=== PATIENT | female | born 1970 | race Caucasian/White ===

== ENCOUNTER 2021-12-27 07:34 | Outpatient (CLI) | payer OTHER, SELFPAY ==
--- NOTE | ~2021-12-27 | XR_ITS ---
EXAMINATION: XR hip BI 2V w AP pelvis DATE: 12/27/2021 09:02 INDICATION: Bilateral hip pain TECHNIQUE: AP view the pelvis and two views of each hip were obtained. COMPARISON: None. FINDINGS: Bone alignment is normal. There is no fracture. There is mild osteoarthritis of the hips. S evere facet osteoarthritis is noted in the lower lumbar spine. IMPRESSION: 1. Mild osteoarthritis of the hips without acute osseous abnormality. Reviewed, dictated and finalized at location B. DESIGNER
--- NOTE | ~2021-12-27 | DEXA_ITS ---
Bone Density Report Name: LYNETTE CAICEDO Age: 51 Sex: Female Ethnicity: White Date of : 1970 Indication: postmenopausal; screening for osteoporosis; height loss; prior fracture; Referring Provider: Dennis Cantu Study: Bone densitometry was performed. Exam Date: December 27, 2021 Accession number: [id number] Bone Density: Region BMD T-score Z-score Classification AP Spine(L1, L2) 1.321 3.1 3.8 Normal Femoral Neck (Left) 0.839 -0.1 0.7 Normal Total Hip (Left) 0.963 0.2 0.6 Normal Femoral Neck (Right) 0.794 -0.5 0.2 Normal Total Hip (Right) 0.944 0.0 0.5 Normal Femoral Neck Mean 0.817 -0.3 0.4 Normal Total Hip Mean 0.953 0.1 0.6 Normal World Health Organization criteria for BMD impression classify patients as: Normal (T-score at or above -1.0), Osteopenia (T-score between -1.0 and -2.5), or Osteoporosis (T-score at or below -2.5). 10-year Fracture Risk: FRAX not reported because: All T-scores for Spine Total, Hip Total, Femoral Neck at or above -1.0 Clinical Information Provided by Patient: Has had a low trauma fracture Smokes Patient maximum height was 67 Menopause Age: 51 No regular weight bearing exercise Does not regularly consume dairy products Drinks caffeinated beverages Onset of menses at age 9 Number of children 0 Impression: The patient has normal bone mass. The patient has risk factors, including: smoking, previous fracture. Discussion: BONE DENSITY IS ABOVE THE MINIMUM DESIRABLE LEVEL AT ALL SKELETAL SITES TESTED. This patient?s bone mineral density is above the minimum desirable level (T-score -1.0 or better) at all sites measured. The patient should follow a healthful lifestyle (good nutrition with adequate calcium and vitamin D, and appropriate weight-bearing exercise). Follow-Up: Consider repeating this study in 5 years or sooner if there is some new clinical indication. Reported by: Dr. Shaun Mohan on 12/27/2021 10:59:00 AM. Reviewed, dictated and finalized at location A. [facility]
--- NOTE | ~2021-12-27 | MM_ITS ---
EXAMINATION: MM screening carolyn BI w kevin HISTORY: Screening mammogram TECHNIQUE: Craniocaudal and mediolateral oblique 3-D tomosynthesis images were obtained and synthetic 2-D images were generated. CAD analysis was submitted and interpreted. COMPARISON: No prior mammogram is available for comparison at this institution. BREAST PARENCHYMAL COMPOSITION: The breasts are almost entirely fatty. FINDINGS: There is no evidence of suspicious mass, calcification, or architectural distortion to sugg est malignancy in either breast. There has been no suspicious interval change. IMPRESSION: 1. No mammographic evidence of malignancy. 2. Recommend routine screening mammography in one year. BI-RADS Category 1: Negative Reviewed, dictated and finalized at location A. ODOLOGIST
--- NOTE | ~2021-12-27 | XR_ITS ---
EXAMINATION: XR lumbar spine 2-3V DATE: 12/27/2021 09:01 INDICATION: Back pain TECHNIQUE: Anteroposterior and lateral views of the lumbar spine, and cone-down lateral view of the l umbosacral junction were obtained. COMPARISON: None. FINDINGS: No fracture is identified. There are 2 mm of retrolisthesis of L5 on S1. There is mild loss of intervertebral disc space height at L5-S1. The lumbar vertebral body heights are maintained. Ther e is minimal anterior wedging in the lower thoracic spine with associated severe spondylosis. Degener ative osteophytes project from the anterior endplates of multiple vertebral bodies. There is advanced facet osteoarthritis of the mid and lower lumbar spine. IMPRESSION: 1. Severe facet osteoarthritis of the mid and lower lumbar spine, otherwise mild lumbar spondylosis. Severe lower thoracic spondylosis. Reviewed, dictated and finalized at location B. CAL BILLING SUPERVISOR IMPRESSION: 1. Severe facet osteoarthritis of the mid and lower lumbar spine, otherwise mil d lumbar spondylosis. Severe lower thoracic spondylosis.
[2021-12-27 07:52] LABS: Appearance Urine Clear (Clear); Basophils Absolute Auto 0.04 K/mm3 (0.00-0.10); Basophils Percent Auto 0.6 % (0.0-1.0); Bilirubin Urine Negative (Negative); Blood Urine Negative (Negative); Eosinophils Absolute Auto 0.09 K/mm3 (0.02-0.50); Eosinophils Percent Auto 1.4 % (1.0-6.0); Glucose Urine UA Negative (Negative); Hematocrit 43.6 % (35.0-49.0); Immature Granulocyte Absolute 0.02 K/mm3 (0.00-0.00); Immature Granulocyte Percent A 0.3 % (0.0-0.0); Ketones Urine Negative (Negative); Leukocyte Esterase Ur Negative (Negative); Lymphocytes Absolute Auto 1.38 K/mm3 (1.10-4.50); Lymphocytes Percent Auto 21.8 % (18.0-42.0); Mean Corpuscular HGB Conc 32.1 g/dL (32.0-36.0); Mean Corpuscular Hemoglobin 28.3 pg (27.0-31.0); Mean Corpuscular Volume 88.1 fL (78.0-102.0); Mean Platelet Volume 10.4 fl (9.2-11.8); Monocytes Absolute Auto 0.38 K/mm3 (0.10-0.90); Neutrophils Absolute Auto 4.4 K/mm3 (1.7-7.2); Neutrophils Percent Auto 69.9 % (50.0-70.0); Nitrate Urine Negative (Negative); Platelet Count Result 245 K/mm3 (150-420); Protein Urine Negative (Negative); Red Blood Count 4.95 M/mm3 (4.20-5.40); Red Cell Distribution Width 12.8 % (11.6-14.4); Urobilinogen Urine 0.2 mg/dL (0.2-1.0); White Blood Count 6.3 K/mm3 (4.8-10.8)
[2021-12-27 08:30] LABS: Add Urine Microscopic? NO; Color Urine Light Yellow (Yellow)
[2021-12-27 08:40] LABS: Alanine Aminotransferase 23 U/L (14-59); Albumin Level 3.3 g/dL (3.4-5.0); Alkaline Phosphatase 129 U/L (46-116); Anion Gap 5 mmol/L (8-16); Aspartate Amino Transferase 17 U/L (15-37); Bilirubin,Total 0.5 mg/dL (0.00-1.00); Blood Urea Nitrogen 10 mg/dL (7-18); Carbon Dioxide 29 mmol/L (21-32); Chloride 104 mmol/L (98-108); Cholesterol 188 mg/dL (0-200); Estimated Glomerular Filt Rate > 60; Glucose 117 mg/dL (70-99); HDL Direct 36 mg/dL (40-60); LDL Cholesterol Calculated 124 mg/dL (<130); Osmolality Calculated 286 mOsm/kg (285-295); Potassium 4.4 mmol/L (3.5-5.1); Sodium 138 mmol/L (136-145); Thyroid Stimulating Hormone 4.51 uIU/mL (0.36-3.74); Total Protein 7.9 g/dL (6.4-8.2); Triglycerides 140 mg/dL (0-150); Uric Acid 8.7 mg/dL (2.6-6.0)
[2021-12-27 12:29] LABS: Free T3 3.06 pg/mL (2.18-3.98); Free T4 Free Thyroxine 0.99 ng/dL (0.76-1.46)
== END 2021-12-27 07:35 | disposition home or self-care (01) ==
LOC: CHSIMG 07:37
PROVIDERS: PCP Internal Medicine; Visit Provider Internal Medicine
DX: Z00.00 Encounter for general adult medical examination without abnormal findings (principal); M10.9 Gout, unspecified; R26.9 Unspecified abnormalities of gait and mobility; Z12.31 Encounter for screening mammogram for malignant neoplasm of breast; R73.09 Other abnormal glucose; R53.83 Other fatigue
CPT/HCPCS: 36415; 72100; 73521; 77063; 77067; 77080; 80053; 80061; 81003; 83036; 84439; 84443; 84481; 84550; 85025

== ENCOUNTER 2022-01-17 07:48 | Outpatient (RCR) | payer OTHER, SELFPAY ==
--- NOTE | 2022-01-17 08:17 | PTOPEVAL1 ---
Assessment and note entered by Ivana Haddad DPT Evaluation Information Assessment Status Evaluation Diagnosis Gait disorder, lumbar region pain Onset 01/10/2022 Subjective Information Pt reports that she has been having low back pain for awhile. She reports occasional heat sensation in the back especially after sitting for a long period of time, and she always figured this was from her posture. She reports that walking and standing is not problem. She reports that back pain is not severe at all. She notes that her balance has been worse since she had foot surgery in 2018. 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 She reports a lot of tripping and falling when she was a kid. She ended up tripping in 2018 and then they performed surgery to structurally repair the R foot. Although the R foot was repaired, the L foot is worse now. She reports a lot of difficulty walking on uneven surfaces and going down stairs and notes she is more cautious when it is dark. She reports no falls since her fall in 2018. She does not walk with an AD. She wants to be able to walk again without such a visual balance impairment, as she feels she walks like a penguin . Reported Pain Level Pain Score 3: Self Report Assessment PT Clinical Summary Pt presents to PT with complaints of an altered gait pattern and occasional low back pain and demonstrates decreased hip abductor strength, trendelenburg gait bilaterally, and altered gait/ posture of the bilateral LEs. These deficits make it more challenging for her to walk and sit as needed for walking her dog along the sidewalk and for her job. She was provided with an HEP focused on improving LE strength, especially of the bilateral hips. She will benefit from skilled PT to improve the aforementioned impairments, facilitate symptom relief, decrease risk for falls , and return all functional and recreational activities. Plan of Care Interventions Electrical Stimulation,Gait Training,Hot Pack/Cold Pack,Manual Therapy,Neuro Re-education,Patient/ Caregiver Educati,Therapeutic Activities, Therapeutic Exercise PT Services Indicated Yes Treatment Frequency and 2x week for 8 visits Duration
--- NOTE | 2022-02-22 17:59 | PTOPPROG ---
Assessment and note entered by Ivana Haddad DPT Evaluation Information Assessment Status Progress Diagnosis Gait disorder, lumbar region pain Onset 01/10/2022 Subjective Information Pt reports that she is not having any pain in her hip or back. She reports some mild tenderness in her R knee because she twisted her knee. They did an Xray and found arthritis in her knee. She is surprised with how well her back and hip are, and her knee is doing much better after using her medicine. She even has continued to all of her activities at home, including walking her dog. She reports her recent visit with Dr. Cantu on 02/15 went well. Assessment PT Clinical Summary Pt presents to PT with significant improvements in pain, strength, mobility, and balance since her initial evaluation. She continues to walk with a bilateral trendelenburg gait pattern. Although her lateral hip/glute strength has improved, there is still room for improvement in an effort to improve her trendelenburg gait, however, pt has a potential for a leg length discrepency. She reports improvements in quality of life since starting PT but hopes to improve her trendelenburg gait. She is likely to benefit from additional skilled PT to further improve gait pattern and strength and return to full functional and recreational activity participation. Plan of Care PT Services Indicated Yes Treatment Frequency and 1x week for 5 visits Duration These treatments will address the objective and functional deficits as defined above. The patient will be advanced safely and appropriately in order for the patient to progress towards his/her prior level of function. Additional exercises will be introduced and as well as a comprehensive home exercise program upon discharge, if needed, ?to ensure carryover of functional gains achieved in the clinic. This treatment plan has been reviewed and agreement upon by the patient.
== END 2022-03-28 18:00 | disposition home or self-care (01) ==
LOC: CHSPT 07:48
PROVIDERS: PCP Internal Medicine; Visit Provider Internal Medicine
DX: R26.9 Unspecified abnormalities of gait and mobility (principal); M47.817 Spondylosis without myelopathy or radiculopathy, lumbosacral region; M16.9 Osteoarthritis of hip, unspecified
CPT/HCPCS: 97110; 97112; 97161; 97530

== ENCOUNTER 2022-01-25 14:15 | Outpatient (RCR) | payer OTHER, SELFPAY ==
[2022-01-25 14:14] VITALS: BMI 41.9
== END 2022-04-13 07:44 | disposition home or self-care (01) ==
LOC: ANHDMC 14:15
PROVIDERS: PCP Internal Medicine; Visit Provider Internal Medicine
DX: R73.03 Prediabetes (principal); Z71.3 Dietary counseling and surveillance
CPT/HCPCS: 97802

== ENCOUNTER 2022-02-15 12:12 | Outpatient (CLI) | payer OTHER, SELFPAY ==
--- NOTE | ~2022-02-15 | XR_ITS ---
Right Knee Technique: AP, lateral, and oblique views were obtained. Clinical History: Pain Findings: No fracture or dislocation is seen. Osseous alignment is anatomic. There is mild degenerati ve change at the lateral joint line. There is moderate degenerative change of the patellofemoral comp artment. Soft tissues are unremarkable. No joint effusion is seen. Impression: Degenerative changes of the lateral and patellofemoral compartments, as detailed above. Reviewed, dictated and finalized at location M. NG BENDER Impression: Degenerative changes of the lateral and patellofemoral compartments, as detaile d above.
== END 2022-02-15 12:13 | disposition home or self-care (01) ==
LOC: CHSIMG 12:14
PROVIDERS: PCP Internal Medicine; Visit Provider Internal Medicine
DX: M25.561 Pain in right knee (principal)
CPT/HCPCS: 73564

== ENCOUNTER 2022-05-28 07:59 | Outpatient (CLI) | payer OTHER, SELFPAY ==
--- NOTE | ~2022-05-28 | XR_ITS ---
XR wrist LT min 3V DATE: 05/28/2022 08:28 INDICATION: Diffuse wrist pain, occasional tingling, numbness TECHNIQUE: 4 views COMPARISON: None FINDINGS: There is narrowing at the joint between the lunate and capitate bones. There is mild osteoa rthritis at the first carpometacarpal joint. No fracture, dislocation, periosteal reaction or bone destruction or erosive change is noted. IMPRESSION: Mild osteoarthritis Reviewed, dictated and finalized at location A. IMPRESSION: Mild osteoarthritis
--- NOTE | ~2022-05-28 | XR_ITS ---
XR hand LT min 3V DATE: 05/28/2022 08:26 INDICATION: Palmar hand and wrist pain TECHNIQUE: 3 views COMPARISON: None FINDINGS: There is severe narrowing at the articulation between the lunate and capitate bones. There is osteophytic change at the triscaphe and first carpometacarpal joint. Mild osteoarthritis at the fi rst metacarpophalangeal and interphalangeal joints. No erosive changes are noted. No chondrocalcinosi s. No fracture, dislocation, periosteal reaction or bone destruction. IMPRESSION: Polyarticular osteoarthritis, most prominent at the lunate capitate joint Reviewed, dictated and finalized at location A.
[2022-05-28 08:17] LABS: Basophils Absolute Auto 0.02 K/mm3 (0.00-0.10); Basophils Percent Auto 0.3 % (0.0-1.0); Eosinophils Absolute Auto 0.06 K/mm3 (0.02-0.50); Eosinophils Percent Auto 0.9 % (1.0-6.0); Hematocrit 43.8 % (35.0-49.0); Hemoglobin 14.4 g/dL (12.0-15.0); Immature Granulocyte Absolute 0.02 K/mm3 (0.00-0.00); Immature Granulocyte Percent A 0.3 % (0.0-0.0); Lymphocytes Absolute Auto 0.95 K/mm3 (1.10-4.50); Lymphocytes Percent Auto 14.4 % (18.0-42.0); Mean Corpuscular HGB Conc 32.9 g/dL (32.0-36.0); Mean Corpuscular Hemoglobin 30.3 pg (27.0-31.0); Mean Corpuscular Volume 92.2 fL (78.0-102.0); Mean Platelet Volume 10.9 fl (9.2-11.8); Monocytes Percent Auto 6.1 % (2.0-11.0); Neutrophils Absolute Auto 5.1 K/mm3 (1.7-7.2); Platelet Count Result 239 K/mm3 (150-420); Red Blood Count 4.75 M/mm3 (4.20-5.40); Red Cell Distribution Width 14.2 % (11.6-14.4); White Blood Count 6.6 K/mm3 (4.8-10.8)
[2022-05-28 08:45] LABS: Hemoglobin A1C 5.6 % (<5.7)
[2022-05-28 08:51] LABS: Alanine Aminotransferase 18 U/L (14-59); Albumin Level 3.9 g/dL (3.4-5.0); Alkaline Phosphatase 107 U/L (46-116); Anion Gap 10 mmol/L (8-16); Aspartate Amino Transferase 17 U/L (15-37); Bilirubin,Total 0.5 mg/dL (0.00-1.00); Blood Urea Nitrogen 11 mg/dL (7-18); CRP 1.7 mg/dL (0.0-0.9); Calcium 9.5 mg/dL (8.5-10.1); Carbon Dioxide 30 mmol/L (21-32); Chloride 104 mmol/L (98-108); Cholesterol 109 mg/dL (0-200); Estimated Glomerular Filt Rate > 60; Glucose 97 mg/dL (70-99); HDL Direct 34 mg/dL (40-60); LDL Cholesterol Calculated 53 mg/dL (<130); Osmolality Calculated 297 mOsm/kg (285-295); Potassium 4.4 mmol/L (3.5-5.1); Sodium 144 mmol/L (136-145); Thyroid Stimulating Hormone 3.71 uIU/mL (0.36-3.74); Triglycerides 110 mg/dL (0-150); Uric Acid 4.4 mg/dL (2.6-6.0)
[2022-06-01 20:57] LABS: Anti Cyclic Citrullinated Pept <16 Units (<20)
== END 2022-05-28 08:00 | disposition home or self-care (01) ==
PROVIDERS: PCP Internal Medicine; Visit Provider Internal Medicine
DX: R73.03 Prediabetes (principal); E78.5 Hyperlipidemia, unspecified; R63.4 Abnormal weight loss; M25.532 Pain in left wrist; M19.032 Primary osteoarthritis, left wrist; M19.042 Primary osteoarthritis, left hand
CPT/HCPCS: 36415; 73110; 73130; 80053; 80061; 83036; 84443; 84550; 85025; 86038; 86140; 86200

== ENCOUNTER 2022-09-24 19:35 | Emergency (ER) | payer OTHER, SELFPAY ==
--- NOTE | ~2022-09-24 | CT_ITS ---
EXAMINATION: CT abdomen pelvis w con DATE: 09/24/2022 21:39 INDICATION: Abdominal pain TECHNIQUE: Computed tomography (CT) of the abdomen and pelvis was performed with 100 mL Omnipaque-350 intravenous contrast. Automated exposure control and iterative reconstruction technique were employe d. The dose-length product was 916.41 mGy-cm. COMPARISON: None FINDINGS: Lung bases are clear. Heart size is normal. No pericardial or pleural effusion. Mild hepatosplenomega ly with right hepatic lobe measuring 21.3 cm craniocaudal length and the spleen measuring 13.7 cm in maximal length. There is nonspecific mild periportal edema. Gallbladder, pancreas, bilateral adrenal glands and kidneys are normal. There is a large right femoral hernia which contains a minimal amount of likely reactive edema as well as a short loop of small bowel which is fluid-filled and with less m ucosal enhancement than the remainder of the small bowel which is concerning for incarceration. No di lation of the more proximal small bowel. There is mild scattered colonic diverticulosis without adjac ent from trace stranding to suggest diverticulitis. Normal appendix. Additional moderate sized fat-co ntaining umbilical hernia. Bladder, uterus and bilateral adnexa are unremarkable. Aside from the prev ious noted minimal amount of fluid in the right femoral hernia there is no other free intraperitoneal gas or fluid. No pathologically enlarged abdominal or pelvic lymphadenopathy. Moderate to severe tho racolumbar spondylosis. IMPRESSION: 1. Short segment of small bowel within a right femoral hernia with relatively decreased mucosal enhan cement concerning for incarceration. 2. Nonspecific mild hepatosplenomegaly. 3. Moderate-sized fat-containing umbilical hernia. Reviewed, dictated and finalized at location A. IMPRESSION: 1. Short segment of small bowel within a right femoral hernia with relatively d ecreased mucosal enhancement concerning for incarceration. 2. Nonspecific mild hepatosplenomegaly. 3. Moderate-sized fat-containing umbilical hernia.
--- NOTE | 2022-09-24 19:40 | ED.NAVMDI ---
HPI - Nausea/Vomiting/Diarrhea General Chief complaint: Nausea/Vomiting/Diarrhea Stated complaint: Nausea; vomiting Time Seen by Provider: 09/24/22 19:40 Source: patient Mode of arrival: ambulatory Limitations: no limitations History of Present Illness HPI Narrative: 51-year-old female with a history of DM, IBS, diverticulosis, colitis, arthritis, chronic low back pain, gout presents to the ER with a 3 hour history of -- nausea with multiple episodes of vomiting. The vomitus is watery. -- lower abdominal pain no fever or chills the patient has not eaten anything out of the ordinary over the past 2-3 days. No other family members have similar symptoms MD elicited complaint: nausea, vomiting and abdominal pain Pertinent past history: anorexia Onset (ago): hour(s) ( Symptoms started 3 hours ago) Description of vomiting: watery Associated nausea: Yes Associated abdominal pain: Yes Location of pain: other ( lower abdominal pain) Radiation: does not radiate Pain consistency: constant Severity: mild Pain scale (0-10): 7 Quality: cramping Exacerbating factors: none Relieving factors: none Associated symptoms: loss of appetite, nausea/vomiting and weakness Related Data Home Medications Medication Instructions Recorded Confirmed allopurinol 100 mg tablet mg 09/24/22 cholestyramine (with sugar) 4 gram ea 09/24/22 powder for susp in a packet cyclosporine 0.05 % eye drops in a drp 09/24/22 dropperette (Restasis) rosuvastatin 5 mg tablet mg 09/24/22 semaglutide 14 mg tablet (Rybelsus) mg PO 09/24/22 Allergies Allergy/AdvReac Type Severity Reaction Status Date / Time No Known Allergies Allergy Verified 09/24/22 19:50 Review of Systems Review of Systems: All systems reviewed & are unremarkable except as noted in HPI and below Constitutional: Constitutional: Reports as per HPI and Reports no additional constitutional complaints Eyes: Eyes: Reports as per HPI and Reports no additional eye complaints ENT: Reports system reviewed and no additional complaints, except as documented and Reports as per HPI Cardiovascular: Cardiovascular: Reports as per HPI and Reports no additional cardiovascular complaints Respiratory: Respiratory: Reports as per HPI and Reports no additional respiratory complaints Gastrointestinal: Gastrointestinal: Reports as per HPI, Reports no additional gastrointestinal complaints, Reports abdominal pain, Reports nausea and Reports vomiting Genitourinary: Genitourinary: Reports no additional female genitourinary complaints and Reports as per HPI Musculoskeletal: Musculoskeletal: Reports no additional musculoskeletal complaints, Reports as per HPI, Reports back pain and Reports arthralgias Integumentary/Breasts: Skin/Breast: Reports system reviewed and no additional complaints, except as docu and Reports as per HPI Neurologic: Reports system reviewed and no additional complaints, except as documented and Reports as per HPI Psychiatric: Psychiatric: Reports no additional psychiatric complaints and Reports as per HPI Endocrine: Endocrine: Reports no additional endocrine complaints and Reports as per HPI Hematologic/Lymphatic: Hematologic/Lymphatic: Reports no additional hematologic/lymphatic complaints and Reports as per HPI Allergic/Immunologic: Allergic/Immunologic: Reports no additional allergic/immunologic complaints and Reports as per HPI [facility] Past Medical History Medical History (Updated 09/25/22 @ 01:39 by Rubio Ho MD) Colitis Diverticulosis Irritable bowel syndrome Social History Social History Spiritual care concerns: No Exam Const: General: no acute distress Orientation/consciousness: patient oriented x3 Limitations: no limitations HENMT: Head: normal to inspection Ears: external ears normal Face/Nose/Sinus: Normal external nose present Face and sinus: normal facial exam Mouth: Yes Normal oral and palatal mucosa present Throat: posterior orophar
[2022-09-24 19:42] VITALS: BP 137/69; PULSE 76; RESP 16; TEMP 36.9; O2SAT 99
[2022-09-24] MEDS: PROCHLORPERAZINE EDISYLATE 10 MG/2 ML VIAL IV PUSH (20:12)
[2022-09-24] MEDS: LACTATED RINGERS 1,000 ML 999 ML IV CONT (20:13)
[2022-09-24 20:39] LABS: Basophils Absolute Auto 0.05 K/mm3 (0.00-0.10); Basophils Percent Auto 0.4 % (0.0-1.0); Eosinophils Absolute Auto 0.02 K/mm3 (0.02-0.50); Eosinophils Percent Auto 0.2 % (1.0-6.0); Hematocrit 44.3 % (35.0-49.0); Hemoglobin 14.8 g/dL (12.0-15.0); Immature Granulocyte Percent A 0.8 % (0.0-0.0); Lymphocytes Absolute Auto 0.95 K/mm3 (1.10-4.50); Lymphocytes Percent Auto 7.7 % (18.0-42.0); Mean Corpuscular HGB Conc 33.4 g/dL (32.0-36.0); Mean Corpuscular Hemoglobin 32.2 pg (27.0-31.0); Mean Corpuscular Volume 96.3 fL (78.0-102.0); Mean Platelet Volume 11.1 fl (9.2-11.8); Monocytes Absolute Auto 0.28 K/mm3 (0.10-0.90); Monocytes Percent Auto 2.3 % (2.0-11.0); Neutrophils Percent Auto 88.6 % (50.0-70.0); Platelet Count Result 216 K/mm3 (150-420); White Blood Count 12.4 K/mm3 (4.8-10.8)
[2022-09-24 20:56] LABS: Prothrombin Time 11.1 Seconds (9.50-12.10)
[2022-09-24 21:01] LABS: Alanine Aminotransferase 16 U/L (14-59); Albumin Level 3.6 g/dL (3.4-5.0); Alkaline Phosphatase 99 U/L (46-116); Anion Gap 11 mmol/L (8-16); Aspartate Amino Transferase 14 U/L (15-37); Bilirubin,Total 0.4 mg/dL (0.00-1.00); Blood Urea Nitrogen 13 mg/dL (7-18); Calcium 9.4 mg/dL (8.5-10.1); Carbon Dioxide 26 mmol/L (21-32); Chloride 103 mmol/L (98-108); Estimated CRCL calculation 94 ml/min; Estimated Glomerular Filt Rate > 60; Glucose 175 mg/dL (70-99); Lipase 20 U/L (16-77); Osmolality Calculated 294 mOsm/kg (285-295); Potassium 4.1 mmol/L (3.5-5.1); Sodium 140 mmol/L (136-145); Total Protein 7.8 g/dL (6.4-8.2)
[2022-09-24 21:04] LABS: Lactic Acid Reflex 2.9 mmol/L (0.4-2.0)
[2022-09-24] MEDS: ONDANSETRON INJ 4 MG/2 ML VIAL IV PUSH (21:24)
[2022-09-24 21:27] LABS: Appearance Urine Clear (Clear); Bilirubin Urine Negative (Negative); Blood Urine Trace-Intact (Negative); Color Urine Light Yellow (Yellow); Glucose Urine UA Negative (Negative); Ketones Urine Negative (Negative); Leukocyte Esterase Ur 1+ LEU/UL (Negative); Nitrate Urine Negative (Negative); Protein Urine Negative (Negative); Urobilinogen Urine 0.2 mg/dL (0.2-1.0)
[2022-09-24 21:35] LABS: Add Urine Microscopic? YES; Amorphous Sediment Urine Few; Bacteria Urine 1+ /hpf; RBC Urine 0-2 /hpf (0-2); Squamous Epithelial Cell Urine Few /hpf (Few); WBC Clumps Urine Present /hpf
[2022-09-24 21:36] LABS: Mucus Urine Few /lpf
[2022-09-24 23:36] LABS: Reflex Lactic Acid Yes or No Add Lactic
[2022-09-25 00:28] LABS: Lactic Acid 1.9 mmol/L (0.4-2.0)
[2022-09-25 01:35] VITALS: BP 124/74; PULSE 72; RESP 18; O2SAT 96
[2022-09-25 02:31] VITALS: BP 124/74; PULSE 73; RESP 16; TEMP 36.4; O2SAT 100
--- NOTE | 2022-09-27 12:19 | PC.NURSE ---
FINAL URINE CULTURE RESULTS: MIXED GENITAL GURMEET ISOLATED. NO FURTHER ACTION AT THIS TIME.
== END 2022-09-25 02:34 | disposition short-term general hospital (02) ==
PROVIDERS: Emergency Provider Internal Medicine Critical Care Medicine; PCP Internal Medicine
DX: K40.90 Unilateral inguinal hernia, without obstruction or gangrene, not specified as recurrent (principal); R73.9 Hyperglycemia, unspecified; R10.31 Right lower quadrant pain
CPT/HCPCS: 36415; 74177; 80053; 81001; 83605; 83690; 84484; 85025; 85610; 87086; 87088; 96361; 96374; 96375; 99284; J0780; J2405; J7120; Q9967

== ENCOUNTER 2022-10-08 09:13 | Outpatient (CLI) | payer OTHER, SELFPAY ==
[2022-10-08 10:01] LABS: Basophils Absolute Auto 0.05 K/mm3 (0.00-0.10); Basophils Percent Auto 0.7 % (0.0-1.0); Eosinophils Absolute Auto 0.12 K/mm3 (0.02-0.50); Eosinophils Percent Auto 1.7 % (1.0-6.0); Hematocrit 41.6 % (35.0-49.0); Hemoglobin 13.6 g/dL (12.0-15.0); Immature Granulocyte Absolute 0.02 K/mm3 (0.00-0.00); Immature Granulocyte Percent A 0.3 % (0.0-0.0); Lymphocytes Absolute Auto 1.26 K/mm3 (1.10-4.50); Lymphocytes Percent Auto 17.7 % (18.0-42.0); Mean Corpuscular HGB Conc 32.7 g/dL (32.0-36.0); Mean Corpuscular Hemoglobin 31.5 pg (27.0-31.0); Mean Corpuscular Volume 96.3 fL (78.0-102.0); Mean Platelet Volume 11.1 fl (9.2-11.8); Monocytes Absolute Auto 0.29 K/mm3 (0.10-0.90); Monocytes Percent Auto 4.1 % (2.0-11.0); Neutrophils Absolute Auto 5.4 K/mm3 (1.7-7.2); Neutrophils Percent Auto 75.5 % (50.0-70.0); Platelet Count Result 320 K/mm3 (150-420); Red Blood Count 4.32 M/mm3 (4.20-5.40); Red Cell Distribution Width 12.8 % (11.6-14.4); White Blood Count 7.1 K/mm3 (4.8-10.8)
[2022-10-08 10:11] LABS: Albumin Level 3.2 g/dL (3.4-5.0); Alkaline Phosphatase 114 U/L (46-116); Anion Gap 9 mmol/L (8-16); Aspartate Amino Transferase 11 U/L (15-37); Bilirubin,Total 0.5 mg/dL (0.00-1.00); Blood Urea Nitrogen 11 mg/dL (7-18); Calcium 9.2 mg/dL (8.5-10.1); Carbon Dioxide 29 mmol/L (21-32); Chloride 103 mmol/L (98-108); Estimated Glomerular Filt Rate > 60; Glucose 93 mg/dL (70-99); Osmolality Calculated 291 mOsm/kg (285-295); Potassium 4.7 mmol/L (3.5-5.1); Sodium 141 mmol/L (136-145); Total Protein 7.1 g/dL (6.4-8.2)
[2022-10-08 10:16] LABS: Partial Thromboplastin Time 30.8 SEC (23.90-30.70); Prothrombin Time 11.1 Seconds (9.50-12.10)
[2022-10-08 10:23] LABS: Alanine Aminotransferase 7 U/L (14-59)
== END 2022-10-08 09:14 | disposition home or self-care (01) ==
LOC: CHSLAB 09:14
PROVIDERS: PCP Internal Medicine; Visit Provider Internal Medicine
DX: T14.8XXA Other injury of unspecified body region, initial encounter (principal)
CPT/HCPCS: 36415; 80053; 85025; 85610; 85730

== ENCOUNTER 2022-11-12 09:37 | Outpatient (CLI) | payer OTHER, SELFPAY ==
[2022-11-12 09:59] LABS: Basophils Absolute Auto 0.02 K/mm3 (0.00-0.10); Basophils Percent Auto 0.3 % (0.0-1.0); Eosinophils Percent Auto 1.5 % (1.0-6.0); Hematocrit 36.9 % (35.0-49.0); Immature Granulocyte Absolute 0.02 K/mm3 (0.00-0.00); Immature Granulocyte Percent A 0.3 % (0.0-0.0); Lymphocytes Percent Auto 21.2 % (18.0-42.0); Mean Corpuscular HGB Conc 32.5 g/dL (32.0-36.0); Mean Corpuscular Hemoglobin 30.6 pg (27.0-31.0); Mean Corpuscular Volume 94.1 fL (78.0-102.0); Mean Platelet Volume 10.4 fl (9.2-11.8); Monocytes Absolute Auto 0.37 K/mm3 (0.10-0.90); Monocytes Percent Auto 5.6 % (2.0-11.0); Neutrophils Absolute Auto 4.7 K/mm3 (1.7-7.2); Neutrophils Percent Auto 71.1 % (50.0-70.0); Platelet Count Result 249 K/mm3 (150-420); Red Blood Count 3.92 M/mm3 (4.20-5.40); Red Cell Distribution Width 12.5 % (11.6-14.4); White Blood Count 6.6 K/mm3 (4.8-10.8)
[2022-11-12 10:07] LABS: Partial Thromboplastin Time 31.5 SEC (23.90-30.70); Prothrombin Time 11.1 Seconds (9.50-12.10)
[2022-11-12 10:14] LABS: Alanine Aminotransferase 19 U/L (14-59); Albumin Level 3.4 g/dL (3.4-5.0); Alkaline Phosphatase 102 U/L (46-116); Anion Gap 10 mmol/L (8-16); Aspartate Amino Transferase 13 U/L (15-37); Bilirubin,Total 0.5 mg/dL (0.00-1.00); Blood Urea Nitrogen 6 mg/dL (7-18); Calcium 9.6 mg/dL (8.5-10.1); Carbon Dioxide 29 mmol/L (21-32); Chloride 105 mmol/L (98-108); Estimated Glomerular Filt Rate > 60; Glucose 97 mg/dL (70-99); Osmolality Calculated 295 mOsm/kg (285-295); Potassium 4.3 mmol/L (3.5-5.1); Sodium 144 mmol/L (136-145); Total Protein 7.1 g/dL (6.4-8.2)
== END 2022-11-12 09:38 | disposition home or self-care (01) ==
PROVIDERS: PCP Internal Medicine; Visit Provider Internal Medicine
DX: R19.7 Diarrhea, unspecified (principal); D68.9 Coagulation defect, unspecified; E88.09 Other disorders of plasma-protein metabolism, not elsewhere classified
CPT/HCPCS: 36415; 80053; 85025; 85610; 85730; 87324

== ENCOUNTER 2023-02-23 08:06 | Outpatient (CLI) | payer OTHER, SELFPAY ==
[2023-03-02 18:27] LABS: Calprotectin, Stool 324 mcg/g
== END 2023-02-23 08:07 | disposition home or self-care (01) ==
PROVIDERS: PCP Internal Medicine
DX: R19.7 Diarrhea, unspecified (principal)
CPT/HCPCS: 83993

== ENCOUNTER 2023-04-15 07:51 | Outpatient (CLI) | payer OTHER, SELFPAY ==
[2023-04-15 08:44] LABS: Basophils Absolute Auto 0.06 K/mm3 (0.00-0.10); Basophils Percent Auto 0.9 % (0.0-1.0); Eosinophils Percent Auto 1.6 % (1.0-6.0); Hemoglobin 13.1 g/dL (12.0-15.0); Immature Granulocyte Absolute 0.02 K/mm3 (0.00-0.00); Immature Granulocyte Percent A 0.3 % (0.0-0.0); Lymphocytes Absolute Auto 1.18 K/mm3 (1.10-4.50); Lymphocytes Percent Auto 18.6 % (18.0-42.0); Mean Corpuscular Volume 90.7 fL (78.0-102.0); Mean Platelet Volume 10.2 fl (9.2-11.8); Monocytes Percent Auto 7.9 % (2.0-11.0); Neutrophils Absolute Auto 4.5 K/mm3 (1.7-7.2); Neutrophils Percent Auto 70.7 % (50.0-70.0); Platelet Count Result 222 K/mm3 (150-420); Red Blood Count 4.52 M/mm3 (4.20-5.40); Red Cell Distribution Width 13.6 % (11.6-14.4); White Blood Count 6.4 K/mm3 (4.8-10.8)
[2023-04-15 09:09] LABS: Alanine Aminotransferase 19 U/L (14-59); Albumin Level 3.3 g/dL (3.4-5.0); Alkaline Phosphatase 109 U/L (46-116); Anion Gap 9 mmol/L (8-16); Aspartate Amino Transferase 15 U/L (15-37); Bilirubin,Total 0.6 mg/dL (0.00-1.00); Blood Urea Nitrogen 13 mg/dL (7-18); Calcium 8.9 mg/dL (8.5-10.1); Carbon Dioxide 30 mmol/L (21-32); Chloride 104 mmol/L (98-108); Cholesterol 104 mg/dL (0-200); Estimated Glomerular Filt Rate > 60; Glucose 96 mg/dL (70-99); HDL Direct 47 mg/dL (40-60); LDL Cholesterol Calculated 37 mg/dL (<130); Osmolality Calculated 296 mOsm/kg (285-295); Potassium 4.3 mmol/L (3.5-5.1); Sodium 143 mmol/L (136-145); Thyroid Stimulating Hormone 4.28 uIU/mL (0.36-3.74); Total Protein 7.1 g/dL (6.4-8.2); Triglycerides 98 mg/dL (0-150); Uric Acid 6.5 mg/dL (2.6-6.0)
== END 2023-04-15 07:52 | disposition home or self-care (01) ==
LOC: CHSLAB 07:52
PROVIDERS: PCP Internal Medicine; Visit Provider Internal Medicine
DX: R73.03 Prediabetes (principal); E78.5 Hyperlipidemia, unspecified; M10.9 Gout, unspecified
CPT/HCPCS: 36415; 80053; 80061; 84443; 84550; 85025

== ENCOUNTER 2023-10-24 08:28 | Outpatient (CLI) | payer OTHER, SELFPAY ==
[2023-10-24 08:41] LABS: Basophils Absolute Auto 0.04 K/mm3 (0.00-0.10); Basophils Percent Auto 0.7 % (0.0-1.0); Eosinophils Absolute Auto 0.05 K/mm3 (0.02-0.50); Eosinophils Percent Auto 0.9 % (1.0-6.0); Hematocrit 41.5 % (35.0-49.0); Hemoglobin 13.4 g/dL (12.0-15.0); Immature Granulocyte Absolute 0.02 K/mm3 (0.00-0.00); Immature Granulocyte Percent A 0.4 % (0.0-0.0); Lymphocytes Absolute Auto 0.96 K/mm3 (1.10-4.50); Lymphocytes Percent Auto 17.8 % (18.0-42.0); Mean Corpuscular HGB Conc 32.3 g/dL (32-36); Mean Corpuscular Hemoglobin 30.5 pg (27.0-31.0); Mean Corpuscular Volume 94.3 fL (78.0-102.0); Mean Platelet Volume 10.2 fl (9.2-11.8); Monocytes Absolute Auto 0.38 K/mm3 (0.10-0.90); Monocytes Percent Auto 7.1 % (2.0-11.0); Neutrophils Absolute Auto 3.93 K/mm3 (1.70-7.20); Neutrophils Percent Auto 73.1 % (50.0-70.0); Platelet Count Result 242 K/mm3 (150-420); Red Cell Distribution Width 13.5 % (11.6-14.4); White Blood Count 5.4 K/mm3 (4.8-10.8)
[2023-10-24 08:53] LABS: Hemoglobin A1C 5.6 % (<5.7)
[2023-10-24 09:44] LABS: Alanine Aminotransferase 15 U/L (14-59); Albumin Level 3.4 g/dL (3.4-5.0); Alkaline Phosphatase 121 U/L (46-116); Anion Gap 9 mmol/L (4-12); Aspartate Amino Transferase 16 U/L (15-37); Bilirubin,Total 0.4 mg/dL (0.00-1.00); Blood Urea Nitrogen 9 mg/dL (7-18); Calcium 9.1 mg/dL (8.5-10.1); Carbon Dioxide 31 mmol/L (21-32); Chloride 98 mmol/L (98-108); Cholesterol 123 mg/dL (0-200); Estimated Glomerular Filt Rate > 60; Glucose 94 mg/dL (70-99); HDL Direct 37 mg/dL (40-60); LDL Cholesterol Calculated 65 mg/dL (<130); Osmolality Calculated 284 mOsm/kg (285-295); Potassium 4.1 mmol/L (3.5-5.1); Sodium 138 mmol/L (136-145); Thyroid Stimulating Hormone 2.36 uIU/mL (0.36-3.74); Total Protein 7.2 g/dL (6.4-8.2); Triglycerides 107 mg/dL (0-150); Uric Acid 4.1 mg/dL (2.6-6.0)
== END 2023-10-24 08:29 | disposition home or self-care (01) ==
LOC: CHSLAB 08:29
PROVIDERS: PCP Internal Medicine; Visit Provider Internal Medicine
DX: M10.9 Gout, unspecified (principal); E78.5 Hyperlipidemia, unspecified; R73.03 Prediabetes
CPT/HCPCS: 36415; 80053; 80061; 83036; 84443; 84550; 85025

== ENCOUNTER 2024-08-10 07:38 | Outpatient (CLI) | payer OTHER, SELFPAY ==
[2024-08-10 08:11] LABS: Add Urine Microscopic? NO; Appearance Urine Clear (Clear); Bilirubin Urine Negative (Negative); Blood Urine Negative (Negative); Color Urine Light Yellow (Yellow); Glucose Urine UA Negative (Negative); Ketones Urine Negative (Negative); Leukocyte Esterase Ur Negative (Negative); Nitrate Urine Negative (Negative); Protein Urine Negative (Negative); Specific Grav Ur <= 1.005 (1.010-1.020); Urobilinogen Urine 0.2 mg/dL (0.2-1.0)
[2024-08-10 08:12] LABS: Basophils Absolute Auto 0.04 K/mm3 (0.00-0.10); Basophils Percent Auto 0.8 % (0.0-1.0); Eosinophils Percent Auto 1.9 % (1.0-6.0); Hematocrit 44.1 % (35.0-49.0); Hemoglobin 14.4 g/dL (12.0-15.0); Immature Granulocyte Absolute 0.02 K/mm3 (0.00-0.00); Immature Granulocyte Percent A 0.4 % (0.0-0.0); Lymphocytes Absolute Auto 1.18 K/mm3 (1.10-4.50); Lymphocytes Percent Auto 22.2 % (18.0-42.0); Mean Corpuscular HGB Conc 32.7 g/dL (32-36); Mean Corpuscular Volume 91.9 fL (78.0-102.0); Mean Platelet Volume 10.6 fl (9.2-11.8); Monocytes Absolute Auto 0.33 K/mm3 (0.10-0.90); Monocytes Percent Auto 6.2 % (2.0-11.0); Neutrophils Absolute Auto 3.65 K/mm3 (1.70-7.20); Neutrophils Percent Auto 68.5 % (50.0-70.0); Platelet Count Result 281 K/mm3 (150-420); White Blood Count 5.3 K/mm3 (4.8-10.8)
[2024-08-10 08:41] LABS: Hemoglobin A1C 5.1 % (<5.7)
[2024-08-10 08:43] LABS: Alanine Aminotransferase 13 U/L (6-35); Alkaline Phosphatase 98 U/L (38-126); Anion Gap 7 mmol/L (4-12); Aspartate Amino Transferase 22 U/L (14-36); Bilirubin,Total 0.6 mg/dL (0.2-1.3); Blood Urea Nitrogen 12 mg/dL (7-17); Calcium 9.2 mg/dL (8.4-10.2); Carbon Dioxide 26 mmol/L (22-30); Chloride 106 mmol/L (98-107); Cholesterol 146 mg/dL (0-200); Estimated Glomerular Filt Rate > 60; Glucose 85 mg/dL (65-110); HDL Direct 35 mg/dL; LDL Cholesterol Calculated 89 mg/dL (<130); Osmolality Calculated 286 mOsm/kg (285-295); Potassium 4.3 mmol/L (3.4-5.0); Sodium 139 mmol/L (137-145); Total Protein 7.1 g/dL (6.3-8.2); Triglycerides 108 mg/dL (<150); Uric Acid 6.1 mg/dL (2.5-7.5)
== END 2024-08-10 07:39 | disposition home or self-care (01) ==
LOC: CHSLAB 07:40
PROVIDERS: PCP Internal Medicine; Visit Provider Internal Medicine
DX: Z00.00 Encounter for general adult medical examination without abnormal findings (principal)
CPT/HCPCS: 36415; 80053; 80061; 81003; 83036; 84443; 84550; 85025

== ENCOUNTER 2024-10-08 07:22 | Outpatient (CLI) | payer OTHER, SELFPAY ==
--- NOTE | ~2024-10-08 | MM_ITS ---
EXAMINATION: MM screening carolyn BI w kevin HISTORY: Screening mammogram, family history of breast cancer in her mother. TECHNIQUE: Craniocaudal and mediolateral oblique 3-D tomosynthesis images were obtained and synthetic 2-D images were generated. CAD analysis was submitted and interpreted. COMPARISON: 12/27/2021 BREAST PARENCHYMAL COMPOSITION:Not Dense. There are scattered areas of fibroglandular density. FINDINGS: No suspicious mass, calcification, or architectural distortion are identified in either breast to suggest malignancy. There has been no suspicious interval change. IMPRESSION: No mammographic evidence of malignancy. Recommend routine screening mammography in one year. BI-RADS Category 1: Negative Reviewed, dictated and finalized at location .
--- NOTE | ~2024-10-08 | DEXA_ITS ---
Bone Density Report Name: LYNETTE CAICEDO Age: 53 Sex: Female Ethnicity: White Date of : 1970 Indication: postmenopausal; screening for osteoporosis; Referring Provider: Dennis Cantu Study: Bone densitometry was performed. Exam Date: October 08, 2024 Accession number: [id number] Bone Density: Region BMD T-score Z-score Classification AP Spine(L1, L2, L3) 1.276 2.3 3.2 Normal Femoral Neck (Left) 0.695 -1.4 -0.5 Osteopenia Total Hip (Left) 0.867 -0.6 0.0 Normal Femoral Neck (Right) 0.683 -1.5 -0.6 Osteopenia Total Hip (Right) 0.841 -0.8 -0.2 Normal Femoral Neck Mean 0.689 -1.4 -0.5 Osteopenia Total Hip Mean 0.854 -0.7 -0.1 Normal World Health Organization criteria for BMD impression classify patients as: Normal (T-score at or above -1.0), Osteopenia (T-score between -1.0 and -2.5), or Osteoporosis (T-score at or below -2.5). 10-year Fracture Risk(1): Major Osteoporotic Fracture 10% Hip Fracture 1.6% Reported Risk Factors: [place] (), Neck BMD=0.683, BMI=23.8, previous fracture, smoking (1) FRAX(R) Version 3.08. Fracture probability calculated for an untreated patient. Fracture probability may be lower if the patient has received treatment. Previous Exams: Region Exam Age BMD T-score BMD Change BMD Change Date g/cm2 vs Baseline vs Previous Total Hip(Left) 10/08/2024 53 0.867 -0.6 -0.095 (-9.9%) -0.095 (-9.9%) 12/27/2021 51 0.963 0.2 Total Hip(Right) 10/08/2024 53 0.841 -0.8 -0.103 (-10.9% -0.103 (-10.9% 12/27/2021 51 0.944 0.0 *Denotes significance at 95% confidence level, LSC for Total Hip = 0.027 g/cm2 Impression: The patient has low bone mass, based on the Right Femoral Neck T-score. The BMD for the Total Hip(Left) decreased, changing by -9.9% since the last DXA exam. The BMD for the Total Hip(Right) decreased, changing by -10.9% since the last DXA exam. Discussion: BONE DENSITY IS LOW AT ONE OR MORE SKELETAL SITES. This patient's lowest T-score is low at one or more skeletal sites. It meets the World Health Organization's (WHO) criteria for ?low bone mass? (T-score between -1.0 and -2.5). The patient's 10-year risk of fracture as calculated by FRAX is less than the threshold where pharmacological therapy is recommended by the National Osteoporosis Foundation (NOF). However, all treatment decisions require clinical judgment and consideration of individual patient factors, including patient preferences, comorbidities, previous drug use, risk factors not captured in the FRAX model (e.g., frailty, falls, vitamin D deficiency, increased bone turnover, interval significant decline in bone density) and possible under or overestimation of fracture risk by FRAX. The patient should follow a healthful lifestyle (good nutrition with adequate calcium and vitamin D, and appropriate weight-bearing exercise). Follow-Up: Consider repeating this study in 2 years to reassess this patient's status, or sooner if there is some new clinical indication. Reported by: ERICK on 10/08/2024 1:12:00 PM. Reviewed, dictated and finalized at location A.
== END 2024-10-08 07:23 | disposition home or self-care (01) ==
LOC: CHSIMG 07:23
PROVIDERS: PCP Internal Medicine; Visit Provider Internal Medicine
DX: Z12.31 Encounter for screening mammogram for malignant neoplasm of breast (principal); Z78.0 Asymptomatic menopausal state; M85.89 Other specified disorders of bone density and structure, multiple sites
CPT/HCPCS: 77063; 77067; 77080